=== PATIENT | female | born 1960 | race Caucasian/White ===

== ENCOUNTER 2017-01-30 22:30 | Inpatient (IN) | payer OTHER ==
[~2017-01-30] VITALS: Ht 160 cm; Wt 46.3 kg
[2017-01-30] MEDS ORDERED: SODIUM CHLORIDE FLUSH 10ML SYR IVF ONE (23:00)
[2017-01-30] MEDS ORDERED: ASPIRIN 81 MG TABLET CHEW PO ONE (23:00)
[2017-01-30] MEDS ORDERED: ONDANSETRON 2MG/ML, 2ML IVPush ONE (23:00)
[2017-01-30] MEDS ORDERED: AMIODARONE 150 MG in DEXTROSE 5% 100 ML IV ONE (23:08)
[2017-01-30] MEDS ORDERED: ASPIRIN 81 MG TABLET CHEW ONE (23:08)
[2017-01-30] MEDS ORDERED: AMIODARONE 900 MG in DEXTROSE 5% 500 ML IV PRN (23:08)
[2017-01-30] MEDS ORDERED: DILTIAZEM 5 MG/ML, 5ML ONE (23:09)
[2017-01-30 23:23] LABS: BASOPHILS # (AUTO) 0.01 x10^3/uL (0-0.1); BASOPHILS % (AUTO) 0 % (0-1); EOSINOPHILS # (AUTO) 0.14 x10^3/uL (0-0.4); EOSINOPHILS % (AUTO) 2 % (1-7); LYMPHOCYTES % (AUTO) 41 % (22-44); MD NO; MEAN CORPUSCULAR HEMOGLOBIN 30.9 pg (27.0-34.8); MEAN CORPUSCULAR HGB CONC 34.4 g/dL (32.4-35.8); MEAN CORPUSCULAR VOLUME 89.8 fL (80-100); MONOCYTES # (AUTO) 0.62 x10^3/uL (0.2-0.8); MONOCYTES % (AUTO) 10 % (2-9); NEUTROPHILS # (AUTO) 2.91 x10^3/uL (1.8-6.8); NEUTROPHILS % (AUTO) 47 % (42-75); PLATELET COUNT 289 x10^3/uL (130-400); RED BLOOD COUNT 4.57 x10^6/uL (3.82-5.3); RED CELL DISTRIBUTION WIDTH 11.9 % (9.6-15.2)
[2017-01-30] MEDS ORDERED: HEPARIN 25,000 UNITS/500ML PMX 500 ML ONE (23:28)
[2017-01-30] MEDS ORDERED: HEPARIN 5,000 UNITS/ML, 1ML ONE (23:28)
[2017-01-30] MEDS ORDERED: HEPARIN 25,000 UNITS/500ML PMX 500 ML IV PRN (23:30)
[2017-01-30] MEDS ORDERED: DILTIAZEM 5 MG/ML, 5ML IV ONE (23:30)
[2017-01-30] MEDS ORDERED: HEPARIN 5,000 UNITS/ML, 1ML IV ONE (23:30)
[2017-01-30] MEDS ORDERED: FILTER 0.22 MICRON IV ONE (23:30)
[2017-01-30 23:35] LABS: ALBUMIN 3.5 g/dL (3.4-5.0); ANION GAP 6 mmol/L (5-15); CALCIUM 9.2 mg/dL (8.5-10.1); CHLORIDE 109 mmol/L (98-107); CREATININE 0.69 mg/dL (0.55-1.02); T4 (THYROXINE) 9.1 mcg/dL (4.8-13.9)
[2017-01-30 23:37] LABS: PROTHROMBIN TIME 10.3 Seconds (9.6-11.5)
[2017-01-30 23:39] LABS: TROPONIN I < 0.015 ng/mL (0.000-0.045)
[2017-01-31 00:39] VITALS: BP 101/64
[2017-01-31 02:52] VITALS: BP_SYST 93; BP_SYST 94; BP_DIAS 56; BP_DIAS 69
[2017-01-31] MEDS ORDERED: HEPARIN 5,000 UNITS/ML, 1ML IV PRN (06:30)
[2017-01-31 07:23] LABS: CHOLESTEROL, TOTAL 164 mg/dL (140-239); TRIGLYCERIDES 73 mg/dL (50-200); VLDL CHOLESTEROL 15 mg/dL (0-25)
[2017-01-31 07:26] LABS: CHOL/HDL RATIO 2.6; HDL CHOL % 39 % (28-40); HDL CHOLESTEROL (DIRECT) 64 mg/dL (40-60); LDL CHOLESTEROL,CALCULATED 85 mg/dL (54-169); LDL/HDL RATIO 1.3 (0.5-3.0); TROPONIN I < 0.015 ng/mL (0.000-0.045)
[2017-01-31] MEDS ORDERED: ONDANSETRON 2MG/ML, 2ML IVPush PRN (07:30)
[2017-01-31] MEDS ORDERED: ONDANSETRON ODT 4 MG PO PRN (07:30)
[2017-01-31 10:15] VITALS: BP 106/70
[2017-01-31] MEDS: APIXABAN 5 MG TABLET PO SCH ×2 (12:46→20:18)
[2017-01-31] MEDS ORDERED: ACETAMINOPHEN 325 MG TABLET PO PRN (14:00)
[2017-01-31 14:33] VITALS: BP 98/63
[2017-01-31 20:16] VITALS: BP 112/74
[2017-02-01 00:16] VITALS: BP 113/72
[2017-02-01] MEDS: APIXABAN 5 MG TABLET PO SCH ×2 (07:38→20:20)
[2017-02-01 07:42] VITALS: BP 105/76
[2017-02-01] MEDS: FLECAINIDE 50MG TABLET PO SCH ×4 (09:30→23:30)
[2017-02-01] MEDS ORDERED: FLECAINIDE 100MG TABLET ONE (10:28)
[2017-02-01 14:00] VITALS: BP 122/79
[2017-02-01 20:16] VITALS: BP 115/69
[2017-02-01 21:46] VITALS: BP 100/65
[2017-02-01 21:47] VITALS: BP 96/60
[2017-02-02 01:58] VITALS: BP 105/71
[2017-02-02] MEDS: APIXABAN 5 MG TABLET PO SCH (07:28)
[2017-02-02] MEDS: FLECAINIDE 50MG TABLET PO SCH (07:28)
[2017-02-02] MEDS ORDERED: FLECAINIDE MC SCH (08:00)
[2017-02-02] MEDS ORDERED: FLEC50TA25 PO ×2 (08:27→08:47)
[2017-02-02] MEDS ORDERED: APIX5TAB PO (08:27)
[2017-02-02 08:55] VITALS: BP 120/85
== END 2017-02-02 12:50 | disposition home or self-care (01) | DRG 309 ==
LOC: ED 23:21 → EDIP 23:22 → ED 23:27 → 5SO 01-31 00:20
PROVIDERS: ADMIT Surgery; ATTEND Surgery
DX: I48.91 Unspecified atrial fibrillation (principal); D68.69 Other thrombophilia; I34.1 Nonrheumatic mitral (valve) prolapse; Z79.82 Long term (current) use of aspirin; Z87.891 Personal history of nicotine dependence; Z90.49 Acquired absence of other specified parts of digestive tract
CPT/HCPCS: 36415; 71010; 80048; 80061; 82040; 83735; 84436; 84443; 84484; 85025; 85520; 85610; 85730; 93005; 93017; 93306; 96374; 96375; J1644; J0282; J7060